=== PATIENT | female | born 1970 ===

== ENCOUNTER 2018-10-30 07:09 | Outpatient (CLI) | payer OTHER ==
[2018-11-03] MEDS ORDERED: SYNTHROID75 MCG PO (14:38)
[2018-11-03] MEDS ORDERED: PROTONIX40 M1 PO (14:38)
== END 2018-10-30 07:32 | disposition home or self-care (01) ==
LOC: LAB 07:09
DX: Z01.812 Encounter for preprocedural laboratory examination (principal)

== ENCOUNTER 2018-11-06 05:42 | Day surgery (SDC) | payer OTHER ==
[~2018-11-06 05:42] MED LIST: PROTONIX40 M1 PO; SYNTHROID75 MCG PO
== END 2018-11-06 15:55 | disposition home or self-care (01) ==
LOC: CIR.AMB 05:42
DX: T83.32XA Displacement of intrauterine contraceptive device, initial encounter (principal); N93.8 Other specified abnormal uterine and vaginal bleeding